=== PATIENT | female | born 1950 | race Caucasian/White ===

== ENCOUNTER 2018-12-25 23:43 | Inpatient (IN) | payer OTHER ==
[~2018-12-25] VITALS: Ht 157.5 cm; Wt 46.7 kg
--- NOTE | 2018-12-26 | NUR ---
PT BIBSELF C/O HEART PALPITATIONS AND FEELING ANXIOUS X1 HR PLANT CUSTODIAN. NOTED TREMORS. PT STATES +ETOH, LAST DRINK X12 HR PLANT CUSTODIAN. PT DENIES SOB, N/V/D, CHEST PAIN, ABDOMINAL PAIN. PT AAOX4. RESPIRATIONS EVEN AND UNLABORED. SKIN WARM AND INTACT. PT PLACED ON CONTINUOUS HEALTH INFORMATION MANAGER, WILL CONTINUE TO MONITOR.
--- NOTE | 2018-12-26 | NUR ---
MD AT BEDSIDE FOR EVALUATION
[2018-12-26] MEDS ORDERED: LORAZEPAM 1 MG TABLET ONE (00:07)
--- NOTE | 2018-12-26 00:10 | NUR ---
MOLD PARTER AT BEDSIDE FOR BLOOD DRAW
[2018-12-26] MEDS: LORAZEPAM 1 MG TABLET PO ONE (00:14)
[2018-12-26 00:18] LABS: BASOPHILS # (AUTO) 0.1 /CMM (0.0-0.2); BASOPHILS % (AUTO) 2.1 % (0.0-2.0); EOSINOPHILS % (AUTO) 3.1 % (0.0-6.0); HEMATOCRIT 40 % (33-45); HEMOGLOBIN 13.3 g/dL (11.5-14.8); LYMPHOCYTES # (AUTO) 2.8 /CMM (0.8-4.8); LYMPHOCYTES % (AUTO) 45.1 % (20.0-44.0); MEAN CORPUSCULAR HGB CONC 33 g/dl (31.0-36.0); MEAN CORPUSCULAR VOLUME 89 fL (82-100); MONOCYTES # (AUTO) 0.4 /CMM (0.1-1.30); MONOCYTES % (AUTO) 5.9 % (2.0-12.0); NEUTROPHILS # (AUTO) 2.8 /CMM (1.8-8.9); NEUTROPHILS % (AUTO) 43.8 % (43.0-81.0); PLATELET COUNT (AUTO) 245 /CMM (150-450); RED BLOOD CELL COUNT(AUTO) 4.47 MIL/uL (4.0-5.2); WHITE BLOOD COUNT (AUTO) 6.3 K/uL (4.3-11.0)
[2018-12-26 00:28] LABS: CALCIUM, SERUM 9.4 mg/dL (8.5-10.1); CARBON DIOXIDE 22 mmol/L (21-32); CHLORIDE 101 mmol/L (98-107); CREATININE 0.9 mg/dL (0.6-1.3); GLUCOSE 135 mg/dL (74-106); SODIUM SERUM 137 mmol/L (136-145); UREA NITROGEN, BLOOD 17 mg/dL (7-18)
[2018-12-26 00:34] LABS: ALANINE AMINOTRANSFERASE 19 U/L (12-78); ALBUMIN 4.4 g/dL (3.4-5.0); ALKALINE PHOSPHATASE 41 U/L (46-116); ASPARTATE AMINOTRANSFERASE 16 U/L (15-37); BILIRUBIN,DIRECT 0.1 mg/dL (0.0-0.2); BILIRUBIN,TOTAL 0.4 mg/dL (0.2-1.0); TOTAL PROTEIN, SERUM 7.7 g/dL (6.4-8.2)
[2018-12-26] MEDS ORDERED: ASPIRIN 81 MG TAB.CHEW ONE (01:24)
[2018-12-26] MEDS ORDERED: ONDANSETRON HCL/PF 4 MG/2 ML VIAL ONE (01:24)
[2018-12-26] MEDS ORDERED: ASPIRIN 81 MG TAB.CHEW PO ONE (01:30)
[2018-12-26] MEDS ORDERED: ONDANSETRON HCL/PF 4 MG/2 ML VIAL IVP ONE (01:30)
[2018-12-26] MEDS ORDERED: IV NS 0.9% 1,000 ML BAG IV ONE (01:30)
--- NOTE | 2018-12-26 02:12 | NUR ---
RADIOLOGY AT BEDSIDE
--- NOTE | 2018-12-26 02:20 | NUR ---
MARKLOGIC DEVELOPER AT BEDSIDE FOR BLOODDRAW
--- NOTE | 2018-12-26 02:32 | NUR ---
PT RESTING COMFORTABLY IN BED. DENIES ANY SOB, CHEST PAIN, N/V/D AT THIS TIME. NO ACUTE DISTRESS NOTED. PT STILL ON CONTINUOUS NURSE SANE. WILL CONTINUE TO MONITOR
--- NOTE | 2018-12-26 03:12 | NUR ---
[facility] contacted. EKG faxed.
[2018-12-26] MEDS ORDERED: NITROGLYCERIN 0.4 MG/TAB BOTTLE ONE (03:22)
[2018-12-26] MEDS ORDERED: NITROGLYCERIN 0.4 MG/TAB BOTTLE SL ONE ×2 (03:30→05:00)
--- NOTE | 2018-12-26 04:02 | NUR ---
Call from [facility]. Per Remedios CERVANTES, Dr Lawrence states not a STEMI case. Will not accept patient.
[2018-12-26] MEDS ORDERED: HEPARIN SODIUM, PORCINE 5000 UNITS/1 ML VIAL IV ONE (04:30)
[2018-12-26] MEDS ORDERED: ATORVASTATIN 40 MG TABLET PO SCH (04:30)
[2018-12-26] MEDS ORDERED: HEPARIN INFUSION/D5W 500 ML IV ONE (04:30)
[2018-12-26] MEDS ORDERED: IV NS 0.9% 1,000 ML IV PRN (04:43)
[2018-12-26] MEDS ORDERED: ACETAMINOPHEN 325 MG TABLET PO PRN (05:00)
[2018-12-26] MEDS ORDERED: Z GUARD REMEDY 2 OZ OINT TP PRN (05:00)
[2018-12-26] MEDS ORDERED: MAGNESIUM HYDROXIDE 30 ML UDC PO PRN (05:00)
[2018-12-26] MEDS ORDERED: LORAZEPAM 1 MG TABLET PO PRN (05:00)
[2018-12-26] MEDS ORDERED: MORPHINE SULFATE INJ 2 MG/ML DISP.SYRIN IV PRN (05:00)
[2018-12-26] MEDS ORDERED: ZOLPIDEM TARTRATE 5 MG TABLET PO PRN (05:00)
[2018-12-26] MEDS ORDERED: MAG HYDROX/AL HYDROX/SIMETH 30 ML UDC PO PRN (05:00)
[2018-12-26] MEDS ORDERED: HEPARIN INFUSION/D5W 500 ML IV PRN (05:00)
[2018-12-26] MEDS ORDERED: POTASSIUM CHLORIDE 20 MEQ TAB.PRT.SR PO ONE (05:00)
[2018-12-26] MEDS ORDERED: HYDROCODONE/APAP 5/325MG 1 EACH TABLET PO PRN (05:00)
[2018-12-26] MEDS ORDERED: ONDANSETRON HCL/PF 4 MG/2 ML VIAL IVP PRN (05:00)
[2018-12-26] MEDS ORDERED: HEPARIN SODIUM, PORCINE 5000 UNITS/1 ML VIAL ONE (05:07)
[2018-12-26] MEDS ORDERED: ATORVASTATIN 40 MG TABLET ONE (05:08)
--- NOTE | 2018-12-26 05:25 | NUR ---
GAVE REPORT TO ROLAN CERVANTES FOR VLADISLAV
--- NOTE | 2018-12-26 05:47 | NUR ---
TRANSFERRED PT PER ACLS PROTOCOL
[2018-12-26 05:56] VITALS: BP 138/55
[2018-12-26 05:57] VITALS: BP 138/55
[2018-12-26] MEDS ORDERED: HYDROMORPHONE INJ 0.5 MG/0.5 ML SYRINGE IV PRN (07:00)
--- NOTE | 2018-12-26 07:15 | NUR ---
RN INITIAL NOTES RECEIVED PT AWAKE, A/OX4. ON ROOM AIR. NO RESPIRATORY DISTRESS NOTED. DENIES ANY PAIN. IV LINES IN PLACE. PT ON HEPARIN DRIP, PTT AT 1130. IVF INFUSING. PT COMFORTABLE. CLEAN AND DRY. CALL LIGHT WITHIN REACH. WILL MONITOR
[2018-12-26] MEDS ORDERED: PANTOPRAZOLE 40 MG TABLET.DR PO SCH (07:30)
[2018-12-26 08:00] VITALS: BP 116/56
[2018-12-26] MEDS ORDERED: DENO60DI SQ (08:03)
[2018-12-26] MEDS ORDERED: CITA20TA16 PO (08:03)
[2018-12-26 09:24] LABS: MAGNESIUM 1.9 mg/dL (1.8-2.4); PHOSPHORUS 3.2 mg/dL (2.5-4.9)
[2018-12-26] MEDS ORDERED: ASPIRIN 81 MG TAB.CHEW PO SCH (10:00)
[2018-12-26] MEDS: METOPROLOL TARTRATE 25 MG TABLET PO SCH ×2 (11:18→17:05)
[2018-12-26] MEDS ORDERED: NITROGLYCERIN 0.4 MG/TAB BOTTLE SL PRN (11:30)
[2018-12-26 12:00] VITALS: BP 112/69
[2018-12-26] MEDS ORDERED: ENOXAPARIN SODIUM 40 MG/0.4 ML DISP.SYRIN SQ SCH (12:00)
--- NOTE | 2018-12-26 13:00 | NUR ---
RN NOTES SEEN AND EXAMINED BY MARIA ANTONIA RENAE DNP. AWARE OF LAB VALUES AND IMAGING STUDIES. PT INITIALLY ON HEPARIN DRIP, DC'D BY DR FERMIN. PT PLACED ON LOVENOX SQ. PT STILL C/O CHEST PAIN, NTG GIVEN WITH RELIEF. EKG DONE, AWARE OF RESULT. MARIA ANTONIA DISCUSSED PLAN OF CARE WITH PT AND FAMILY MEMBERS. PT WILL BE TRANSFERRED TO [facility] FOR CARDIAC CATH. ROSALINO (SHOWROOM SALES CONSULTANT) AWARE. WILL CONTINUE TO MONITOR.
[2018-12-26 16:00] VITALS: BP 112/63
[2018-12-26] MEDS ORDERED: NITROGLYCERIN PACKET 1 GM PACKET TOP SCH (18:00)
--- NOTE | 2018-12-26 18:32 | NUR ---
RN CLOSING NOTES NO SIGNIFICANT CHANGE NOTED. NO RESPIRATORY DISTRESS NOTED. DENIES ANY CHEST PAIN. KEPT COMFORTABLE. KEPT CLEAN AND DRY. ALL NEEDS ATTENDED AND MET. CALL LIGHT WITHIN REACH. AWAITING FOR TRANSFER TO HIGHER LEVEL OF CARE. WILL ENDORSE FOR CONTINUITY OF CARE.
--- NOTE | 2018-12-26 18:59 | NUR ---
RN NOTES PT WILL BE TRANSFERRED TO [facility] FOR CARDIAC CATH. CALLED [facility], SPOKE WITH BILLY TEMPLE. ALL PERTINENT INFO GIVEN.
[2018-12-26 20:00] VITALS: BP 121/69
--- NOTE | 2018-12-26 20:15 | NUR ---
RN NOTE PATIENT LEFT TO [facility] VIA AMBULANCE VIA GURNEY, NO CHEST PAIN OR DISCOMFORT NOTED, NO DISTRESS NOTED, DX NSTEMI, LAC 18 GAUGE AND LEFT HAND 22 GAUGE IV SITES ARE INTACT, NO S/S OF INFECTION/INFILTRATION NOTED, NO REDNESS, PATIENT IS NPO, ALL BELONGINGS ARE TAKEN AND BELONGING'S LIST SIGNED, SON IS BY BEDSIDE, REPORT WAS PROVIDED BY AM NURSE TO [facility] TO NURSE MENESES, ALL SAFETY MEASURES TAKEN, VITAL SIGNS STABLE, LEFT IN STABLE CONDITION.
[2019-01-28] MEDS ORDERED: CLOP75TA15 PO (11:12)
== END 2018-12-26 20:15 | disposition short-term general hospital (02) | DRG 282 ==
LOC: ER 23:45 → TELE1 12-26 05:02 → TELE-TD 12-26 05:16 → TELE1 12-26 10:30
PROVIDERS: ADMIT Nurse Practitioner Acute Care; ATTEND Nurse Practitioner Acute Care
DX: I21.4 Non-ST elevation (NSTEMI) myocardial infarction (principal); E87.6 Hypokalemia; F10.10 Alcohol abuse, uncomplicated; M81.0 Age-related osteoporosis without current pathological fracture; Z82.49 Family history of ischemic heart disease and other diseases of the circulatory system; F41.9 Anxiety disorder, unspecified; G89.29 Other chronic pain; Y90.9 Presence of alcohol in blood, level not specified
CPT/HCPCS: 36415; 71045-TC; 80048-TC; 80061-TC; 80076-TC; 83735-TC; 84100-TC; 84484-TC; 85025-TC; 85378-TC; 85610-TC; 85730-TC; 87081-TC; 93307-TC; 93970-TC; G0378; J1644; J1650; J2405; J7030

== ENCOUNTER 2019-01-27 08:27 | Inpatient (IN) | payer OTHER ==
[~2019-01-27] VITALS: Ht 157.5 cm; Wt 42.6 kg
[~2019-01-27 08:27] MED LIST: CITA20TA16 PO; DENO60DI SQ
--- NOTE | 2019-01-27 08:28 | NUR ---
Patient came in c/o blurry vision. Breathing even and unlabored, no sob noted. Denies pain or discomfort at this time. Will continue to monitor.
--- NOTE | 2019-01-27 08:30 | NUR ---
PT IV LINE ESTABLISHED, LABS DRAWNED AND SENT TO LAB.
--- NOTE | 2019-01-27 08:35 | NUR ---
DR. DUTTA AT BEDSIDE FOR EVAL.
[2019-01-27 08:55] LABS: BASOPHILS # (AUTO) 0.1 /CMM (0.0-0.2); BASOPHILS % (AUTO) 1.1 % (0.0-2.0); EOSINOPHILS % (AUTO) 3.9 % (0.0-6.0); HEMATOCRIT 40 % (33-45); HEMOGLOBIN 13.4 g/dL (11.5-14.8); LYMPHOCYTES # (AUTO) 2.7 /CMM (0.8-4.8); LYMPHOCYTES % (AUTO) 40.7 % (20.0-44.0); MEAN CORPUSCULAR HGB CONC 34 g/dl (31.0-36.0); MEAN CORPUSCULAR VOLUME 88 fL (82-100); MONOCYTES # (AUTO) 0.5 /CMM (0.1-1.30); MONOCYTES % (AUTO) 7.3 % (2.0-12.0); NEUTROPHILS # (AUTO) 3.1 /CMM (1.8-8.9); PLATELET COUNT (AUTO) 250 /CMM (150-450); RED BLOOD CELL COUNT(AUTO) 4.49 MIL/uL (4.0-5.2); WHITE BLOOD COUNT (AUTO) 6.6 K/uL (4.3-11.0)
[2019-01-27] MEDS ORDERED: IV NS 0.9% 500 ML BAG IV ONE (09:00)
[2019-01-27 09:05] LABS: CALCIUM, SERUM 9.6 mg/dL (8.5-10.1); CARBON DIOXIDE 25 mmol/L (21-32); CHLORIDE 102 mmol/L (98-107); CREATININE 1.1 mg/dL (0.6-1.3); GLUCOSE 109 mg/dL (74-106); SODIUM SERUM 139 mmol/L (136-145); UREA NITROGEN, BLOOD 18 mg/dL (7-18)
[2019-01-27 09:13] LABS: TRIGLYCERIDES 70 mg/dL (30-150)
[2019-01-27 09:14] LABS: CHOLESTEROL 232 mg/dL (<200); HDL CHOLESTEROL 119 mg/dL (40-60); LDL 92 mg/dL (0-99)
[2019-01-27] MEDS ORDERED: CT SWABBABLE VALVE TRANS SET 1 EA INFUS.SET MC ONE (09:21)
[2019-01-27] MEDS ORDERED: IV NS 0.9% 250 ML IV ONE (09:21)
[2019-01-27] MEDS ORDERED: IOHEXOL-350 100 ML VIAL IV ONE (09:21)
[2019-01-27] MEDS ORDERED: ERGO500014 PO (10:39)
[2019-01-27] MEDS ORDERED: ASPI-1169 PO (10:39)
[2019-01-27] MEDS ORDERED: ASPIRIN 325 MG TABLET PO ONE (11:00)
[2019-01-27] MEDS ORDERED: ACETAMINOPHEN 650 MG/20.3 ML UDC PO ONE (11:00)
[2019-01-27] MEDS ORDERED: ACETAMINOPHEN 650 MG/20.3 ML UDC ONE (11:07)
[2019-01-27] MEDS ORDERED: ASPIRIN 325 MG TABLET ONE (11:07)
--- NOTE | 2019-01-27 12:59 | NUR ---
TELE 307-1 DX TIA
[2019-01-27] MEDS ORDERED: hydrALAZINE HCL 25 MG TABLET PO PRN (13:00)
[2019-01-27] MEDS ORDERED: MAG HYDROX/AL HYDROX/SIMETH 30 ML UDC PO PRN (13:00)
[2019-01-27] MEDS ORDERED: ZOLPIDEM TARTRATE 5 MG TABLET PO PRN (13:00)
[2019-01-27] MEDS ORDERED: HYDROCODONE/APAP 5/325MG 1 EACH TABLET PO PRN (13:00)
[2019-01-27] MEDS ORDERED: DENOSUMAB 60 MG SQ SCH (13:00)
[2019-01-27] MEDS ORDERED: ACETAMINOPHEN 325 MG TABLET PO PRN (13:00)
[2019-01-27] MEDS ORDERED: Z GUARD REMEDY 2 OZ OINT TP PRN (13:00)
[2019-01-27] MEDS ORDERED: ONDANSETRON HCL/PF 4 MG/2 ML VIAL IVP PRN (13:00)
[2019-01-27] MEDS ORDERED: MAGNESIUM HYDROXIDE 30 ML UDC PO PRN (13:00)
--- NOTE | 2019-01-27 13:00 | NUR ---
REPORT GIVEN TO NED CERVANTES.
--- NOTE | 2019-01-27 13:09 | NUR ---
PATIENT TRANSFERRED TO ROOM 307-2 TELE VIA ACLS PROTOCOL. NO DISTRESS NOTED.
[2019-01-27 13:30] VITALS: BP 131/64
[2019-01-27] MEDS ORDERED: POLYVINYL ALCOHOL 15 ML BOTTLE EACHEYE PRN ×2 (13:30→14:30)
--- NOTE | 2019-01-27 13:30 | NUR ---
QUARTZ ORIENTATOR NOTES ADMITTED PATIENT FROM ER WITH STABLE VITAL SIGNS. NO ACUTE DISTRESS NOTED. BREATHING UNLABORED. NO SOB NOTED. ALERT ORIENTED X 4.IV ACCESS PATENT AND INTACT. SAFETY MEASURES IN PLACE. CALL LIGHT WITHIN REACH. WILL CONTINUE TO MONITOR ACCORDINGLY.
--- NOTE | 2019-01-27 13:30 | NUR ---
DIRECTOR OF GROUP SALES NOTES SEEN AND EVALUATED BY DR JOEL CARPENTER WITH NEW ORDERS MADE, NOTED AND CARRIED OUT.
[2019-01-27] MEDS ORDERED: POTASSIUM CHLORIDE 20 MEQ TAB.PRT.SR PO ONE ×2 (14:00)
[2019-01-27 14:14] LABS: ALBUMIN 4.5 g/dL (3.4-5.0); BILIRUBIN,DIRECT 0.1 mg/dL (0.0-0.2); BILIRUBIN,TOTAL 0.6 mg/dL (0.2-1.0); TOTAL PROTEIN, SERUM 8.1 g/dL (6.4-8.2)
[2019-01-27 14:17] LABS: THYROID STIMULATING HORMONE 2.643 uIU/mL (0.358-3.74)
[2019-01-27] MEDS: AMLODIPINE BESYLATE 2.5 MG TABLET PO SCH (14:30)
[2019-01-27] MEDS: CLOPIDOGREL BISULFATE 75 MG TABLET PO SCH (14:53)
[2019-01-27] MEDS: IV NS 0.9% 1,000 ML IV PRN (14:57)
[2019-01-27] MEDS: BLOOD SUGAR DIAGNOSTIC 1 EACH STRIP IN SCH ×2 (17:27→23:18)
[2019-01-27] MEDS ORDERED: BLOOD SUGAR DIAGNOSTIC 1 EACH STRIP IN SCH (17:30)
--- NOTE | 2019-01-27 19:00 | NUR ---
AUGER MACHINE OFFBEARER NOTES PATIENT IN BED ALERT ORIENTED X 4. NO ACUTE DISTRESS NOTED, BREATHING UNLABORED. NO SOB NOTED. IV ACCESS PATENT AND INTACT. HOB ELEVATED.DUE MEDICATIONS GIVEN, NO ASE NOTED. NEEDS ATTENDED AND ANTICIPATED. KEPT CLEAN DRY AND COMFORTABLE. SAFETY MEASURES IN PLACE. CALL LIGHT WITHIN REACH. ENDORSED TO NIGHT NURSE FOR CONTINUITY OF CARE.
--- NOTE | 2019-01-27 19:30 | NUR ---
RN NOTES RECEIVED PT. AWAKE ON BED A/OX4, AMBULATE WITH ASSIST, SR ON TELE MONITOR HR-68, SON AT BEDSIDE, DENIES PAIN, NO SOB, CALL LIGHT WITHIN REACH, [id number], CONTINUE TO MONITOR
[2019-01-27 20:00] VITALS: BP 136/70
[2019-01-27 20:34] VITALS: BP 136/70
[2019-01-27] MEDS ORDERED: ATORVASTATIN 40 MG TABLET PO SCH (22:00)
[2019-01-28] VITALS: BP 128/77
[2019-01-28 01:25] VITALS: BP 127/77
[2019-01-28] MEDS ORDERED: LORA0.5T PO (01:59)
[2019-01-28 03:09] LABS: APPEARANCE,URINE CLEAR (CLEAR); BILIRUBIN,URINE NEGATIVE (NEGATIVE); BLOOD, URINE TRACE Ery/uL (NEGATIVE); COLOR,URINE YELLOW (YELLOW); KETONES,URINE TRACE (NEGATIVE); LEUKOCYTE ESTERASE ,URINE NEGATIVE (NEGATIVE); NITRITE, URINE NEGATIVE (NEGATIVE); PH,URINE 6.5 (5.0-8.0); PROTEIN,URINE NEGATIVE (NEGATIVE); UGLUCOSE NEGATIVE (NEGATIVE); UROBILINOGEN,URINE 0.2 EU/dL (0.2)
[2019-01-28 04:01] LABS: BACTERIA,URINE Few /HPF (None Seen); SQUAMOUS EPITHELIAL CELL,UR Few /HPF (None Seen)
[2019-01-28 04:37] VITALS: BP 127/66
[2019-01-28] MEDS: IV NS 0.9% 1,000 ML IV PRN (05:27)
[2019-01-28] MEDS: BLOOD SUGAR DIAGNOSTIC 1 EACH STRIP IN SCH ×2 (05:27→12:00)
--- NOTE | 2019-01-28 06:29 | NUR ---
RN NOTES AWAKE, DENIES PAIN, NO SOB, MORNING CARE RENDERED, CALL LIGHT WITHIN REACH, [id number], PT. NEEDS ATTENDED
[2019-01-28 06:35] LABS: BASOPHILS % (AUTO) 0.8 % (0.0-2.0); EOSINOPHILS % (AUTO) 2.4 % (0.0-6.0); HEMATOCRIT 36 % (33-45); HEMOGLOBIN 12.1 g/dL (11.5-14.8); LYMPHOCYTES # (AUTO) 1.5 /CMM (0.8-4.8); LYMPHOCYTES % (AUTO) 28.5 % (20.0-44.0); MEAN CORPUSCULAR HGB CONC 34 g/dl (31.0-36.0); MEAN CORPUSCULAR VOLUME 88 fL (82-100); MONOCYTES # (AUTO) 0.3 /CMM (0.1-1.30); MONOCYTES % (AUTO) 6.3 % (2.0-12.0); NEUTROPHILS # (AUTO) 3.3 /CMM (1.8-8.9); PLATELET COUNT (AUTO) 215 /CMM (150-450); RED BLOOD CELL COUNT(AUTO) 4.04 MIL/uL (4.0-5.2); WHITE BLOOD COUNT (AUTO) 5.4 K/uL (4.3-11.0)
[2019-01-28 06:57] LABS: CALCIUM, SERUM 8.9 mg/dL (8.5-10.1); CREATININE 0.7 mg/dL (0.6-1.3); MAGNESIUM 2.2 mg/dL (1.8-2.4); PHOSPHORUS 3.3 mg/dL (2.5-4.9); POTASSIUM 4.1 mmol/L (3.5-5.1)
[2019-01-28 07:01] LABS: THYROID STIMULATING HORMONE 3.365 uIU/mL (0.358-3.74)
--- NOTE | 2019-01-28 07:33 | NUR ---
HEM INSPECTOR OPENING NOTES RECEIVED THE PT IN BED, EASILY AWAKEN. ALERT AND ORIENTED X4. TOLERATING RA, BREATHING EVEN AND UNLABORED. DENIES PAIN AT THIS MOMENT. IVF NS AT 75ML/HR TO RAC, INTACT AND OPERATIONAL. ON TELEMONITORING WITH SR, HR OF 64. BED IN LOWEST, LOCKED POSITION WITH SR X2. CALL LIGHT KEPT WITHIN REACH. WILL CONTINUE PLAN OF CARE.
[2019-01-28 08:00] VITALS: BP 131/70
[2019-01-28] MEDS: CLOPIDOGREL BISULFATE 75 MG TABLET PO SCH (08:30)
[2019-01-28] MEDS: AMLODIPINE BESYLATE 2.5 MG TABLET PO SCH (08:30)
[2019-01-28] MEDS ORDERED: CITALOPRAM HYDROBROMIDE 20 MG TABLET PO SCH (09:00)
[2019-01-28] MEDS ORDERED: ASPIRIN 81 MG TAB.CHEW PO SCH (09:00)
--- NOTE | 2019-01-28 11:00 | NUR ---
TEXTED DR. AMADOR FOR MRI APPROVAL.
[2019-01-28] MEDS ORDERED: CLOP75TA15 PO (11:12)
--- NOTE | 2019-01-28 12:00 | NUR ---
MS RN NOTES PER DR. CARPENTER DISCHARGE PATIENT WITHOUT MRI PATIENT IS SAFE TO BE DISCHARGED WITHOUT MRI.
--- NOTE | 2019-01-28 13:45 | NUR ---
MS PROCEDURES NURSE NOTES PT ALERT AND ORIENTED X4. AMBULATORY. TO DISCHARGE HOME, ACCOMPANIED BY SON VIA PRIVATE CAR. PT NOT IN ANY ACUTE RESPIRATORY DISTRESS, TOLERATING RA. PT REQUESTED FOR TYLENOL 650MG FOR MILD HEADACHE BEFORE LEAVING THE UNIT AT 1335. NO OTHER DISCOMFORT STATED. ALL BELONGINGS WITH THE PT. REVIEWED AND SIGNED DISCHARGE INSTRUCTIONS, MEDICATIONS AND INVENTORY LIST. PRESCRIPTION FOR MEDICATIONS GIVEN TO PT. PT VERBALIZED UNDERSTANDING OF DISCHARGE TEACHING. VS STABLE. PIV TO RAC REMOVED, APPLIED DRY DRESSING. SKIN INTACT, NO PHOTOS TAKEN. PT LEFT THE UNIT AT 1335, ESCORTED TO ELEVATOR WITH THE SON. AND CN AWARE.
[2019-01-28 16:09] VITALS: BP 142/69
== END 2019-01-28 13:35 | disposition home or self-care (01) | DRG 66 ==
LOC: ER 08:29 → TELE 12:21 → MED 01-28 08:39
PROVIDERS: ADMIT Internal Medicine; ATTEND Internal Medicine
DX: I63.9 Cerebral infarction, unspecified (principal); I10 Essential (primary) hypertension; M81.0 Age-related osteoporosis without current pathological fracture; Z87.891 Personal history of nicotine dependence; E87.6 Hypokalemia; E78.5 Hyperlipidemia, unspecified; F32.9 Major depressive disorder, single episode, unspecified; K21.9 Gastro-esophageal reflux disease without esophagitis; H53.2 Diplopia; Z79.82 Long term (current) use of aspirin; Z83.3 Family history of diabetes mellitus
CPT/HCPCS: 36415; 70496-TC; 70498-TC; 71045-TC; 80048-TC; 80061-TC; 80076-TC; 81000-TC; 82962-TC; 83540-TC; 83735-TC; 83880; 84100-TC; 84443-TC; 84484-TC; 85025-TC; 85652-TC; 85730-TC; 87081-TC; 92611-TC; G0378; J7030; J7050; Q9967